=== PATIENT | female | born 1995 | race Caucasian/White ===

== ENCOUNTER 2021-12-18 19:28 | Emergency (ER) | payer OTHER ==
--- NOTE | 2021-12-18 19:56 | ERPHSYRPT ---
- History of Present Illness Time Seen by Provider: 12/18/21 19:56 Historian: patient, family Exam Limitations: no limitations Patient Subjective Stated Complaint: pt states "I have been throwing up since this morning." Triage Nursing Assessment: pt ambulated into the er; pt is axo x4; c/o vomiting; pt states 5/10 pain to RUQ; pt states 4 episodes of emesis today; pt denies diarrhea; pt states last bm today and was normal for her; abd obese, round, soft, tender to RUQ; hyperactive bowel sounds in all quads; pt denies difficulty with urination; vitals wnl Timing/Duration: today Activities at Onset: none Quality: cramping Abdominal Pain Onset Location: RUQ Pain Radiation: no radiation Severity of Pain-Max: moderate Severity of Pain-Current: mild Modifying Factors: Improves With: nothing Associated Symptoms: denies symptoms Previous symptoms: same symptoms as today Allergies/Adverse Reactions: shrimp Allergy (Severe, Verified 12/18/21 19:35) Difficulty Breathing bee pollen Adverse Reaction (Verified 12/18/21 19:35) Swelling Home Medications: ARIPiprazole [Abilify] 5 mg PO DAILY 08/09/19 [History] PARoxetine HCL [Paxil] 40 mg PO DAILY 08/09/19 [History] Hx Tetanus, Diphtheria Vaccination/Date Given: Yes Hx Influenza Vaccination/Date Given: No Hx Pneumococcal Vaccination/Date Given: No Travel Risk - International Travel Have you traveled outside of the country in past 3 weeks: No - Coronavirus Screening Are you exhibiting any of the following symptoms?: Yes Symptoms: Vomiting/Diarrhea Close contact with a COVID-19 positive Pt in past 14-21 Days: No - Vaccine Status Have you recieved a Covid-19 vaccination: No - Review of Systems Constitutional: No Symptoms Eyes: No Symptoms Ears, Nose, & Throat: No Symptoms Respiratory: No Symptoms Cardiac: No Symptoms Abdominal/Gastrointestinal: Nausea, Vomiting Genitourinary Symptoms: No Symptoms Musculoskeletal: No Symptoms Neurological: No Symptoms Psychological: No Symptoms Endocrine: No Symptoms Hematologic/Lymphatic: No Symptoms Immunological/Allergic: No Symptoms All Other Systems: Reviewed and Negative - Past Medical History Pertinent Past Medical History: Yes Neurological History: No Pertinent History ENT History: No Pertinent History Cardiac History: No Pertinent History Respiratory History: No Pertinent History Endocrine Medical History: No Pertinent History Musculoskeletal History: No Pertinent History GI Medical History: No Pertinent History History: No Pertinent History Psycho-Social History: Bipolar, Depression, Anxiety, Attention Deficit Disorder Female Reproductive Disorders: Menstrual Problems - Past Surgical History Past Surgical History: No Neuro Surgical History: No Pertinent History Cardiac: No Pertinent History Respiratory: No Pertinent History Gastrointestinal: No Pertinent History Genitourinary: No Pertinent History Musculoskeletal: No Pertinent History Female Surgical History: No Pertinent History - Social History Smoking Status: Former smoker How long have you smoked: 3 yrs Exposure to second hand smoke: Yes Drug Use: none Patient Lives Alone: No - Female History Hx Now: No - Nursing Vital Signs Nursing Vital Signs: Initial Vital Signs Temperature 98.9 F 12/18/21 19:36 Pulse Rate 81 12/18/21 19:36 Respiratory Rate 18 12/18/21 19:36 Blood Pressure 130/69 12/18/21 19:36 O2 Sat by Pulse Oximetry 97 12/18/21 19:36 Pain Scale Pain Intensity 0 - Physical Exam General Appearance: mild distress, obese Eye Exam: PERRL/EOMI Ears, Nose, Throat Exam: normal ENT inspection Neck Exam: normal inspection Respiratory Exam: normal breath sounds Cardiovascular Exam: regular rate/rhythm Gastrointestinal/Abdomen Exam: soft, normal bowel sounds, tenderness (mild RUQ) Pelvic Exam: not done Rectal Exam: deferred Back Exam: normal inspection Extremity Exam: normal inspection Neurologic Exam: alert, oriented x 3, cooperative Skin Exam: normal color SpO2 Interpretation: normal SpO2: 97 O2 Delivery: Room Air - Course Nursing assessment & vital signs reviewed: Yes - CT Exams Abdomen/Pelvis CT Interpretation: Tele-radiologist Report, Other (no acute change) Ordered Tests: Active Orders 24 hr Category Date Time Status ABDOMEN AND PELVIS W/0 CONTRAS [CT] Stat Exams 12/18/21 21:21 Taken AMYLASE Stat Lab 12/18/21 20:00 Completed CBC W DIFF Stat Lab 12/18/21 20:00 Completed CMP Stat Lab 12/18/21 20:00 Completed HCG QUALITATIVE,SERUM Stat Lab 12/18/21 20:00 Completed LIPASE Stat Lab 12/18/21 20:00 Completed UA W/RFX CULTURE Stat Lab 12/18/21 21:26 Completed Medication Summary Discontinued Medications Generic Name Dose Route Start Last Admin Trade Name Freq PRN Reason Stop Dose Admin Ondansetron HCl 4 mg 12/18/21 20:17 12/18/21 20:21 Ondansetron Hcl 4 Mg/2 Ml Vial IV 12/18/21 20:18 4 mg STAT ONE Administration Ondansetron HCl Confirm 12/18/21 20:20 Ondansetron Hcl 4 Mg/2 Ml Vial Administered 12/18/21 20:21 Dose 4 mg .ROUTE .[employer] ONE Prochlorperazine Edisylate 10 mg 12/18/21 22:35 12/18/21 22:50 Prochlorperazine Edisylate 10 Mg/2 Ml Vial IV 12/18/21 22:36 10 mg STAT ONE Administration Prochlorperazine Edisylate Confirm 12/18/21 22:49 Prochlorperazine Edisylate 10 Mg/2 Ml Vial Administered 12/18/21 22:50 Dose 10 mg .ROUTE .[employer] ONE Lab/Rad Data: Laboratory Result Diagrams 12/18/21 20:00 12/18/21 20:00 Laboratory Results 12/18/21 12/18/21 12/18/21 Range/Units 21:26 20:00 20:00 WBC (4.0-10.5) x10^3/uL RBC (4.1-5.4) x10^6/uL Hgb (12.0-16.0) g/dL Hct (35-47) % MCV (78-100) fL MCH (26-32) pg MCHC (32-36) g/dL RDW (11.5-14.0) % Plt Count (150-450) x10^3/uL MPV (7.5-11.0) fL Gran % (36.0-66.0) % Immature Gran % (Auto) (0.00-0.4) % Nucleat RBC Rel Count (0.00-0.1) % Eos # (Auto) (0-0.5) x10^3/uL Immature Gran # (Auto) (0.00-0.03) x10^3u/L Absolute Lymphs (auto) (1.0-4.6) x10^3/uL Absolute Monos (auto) (0.0-1.3) x10^3/uL Absolute Nucleated RBC (0.00-0.01) x10^3u/L Lymphocytes % (24.0-44.0) % Monocytes % (0.0-12.0) % Eosinophils % (0.00-5.0) % Basophils % (0.0-0.4) % Absolute Granulocytes (1.4-6.9) x10^3/uL Basophils # (0-0.4) x10^3/uL Sodium 139 (137-145) mmol/L Potassium 4.0 (3.5-5.1) mmol/L Chloride 105 (98-107) mmol/L Carbon Dioxide 25 (22-30) mmol/L Anion Gap 13.6 (5-15) MEQ/L BUN 7 (7-17) mg/dL Creatinine 0.54 (0.52-1.04) mg/dL Estimated GFR > 60.0 ML/MIN Glucose 106 (74-106) mg/dL Calcium 9.6 (8.4-10.2) mg/dL Total Bilirubin 1.10 (0.2-1.3) mg/dL AST 243 H (14-36) U/L ALT 125 H (0-35) U/L Alkaline Phosphatase 78 (38-126) U/L Serum Total Protein 6.7 (6.3-8.2) g/dL Albumin 3.8 (3.5-5.0) g/dL Amylase 46 (30-110) U/L Lipase 45 (23-300) U/L Serum , Qual NEGATIVE (Negative) Urinalys Dipstick Clnc MAIN LAB Urine Color YELLOW (YELLOW) Urine Appearance CLEAR (CLEAR) Urine pH 8.5 (5-6) Ur Specific [place] 1.020 (1.005-1.025) POC Urine Protein Conf TRACE (Negative) Urine Ketones NEGATIVE (NEGATIVE) Urine Nitrite NEGATIVE (NEGATIVE) Urine Bilirubin NEGATIVE (NEGATIVE) Urine Urobilinogen 1 (0-1) mg/dL Urine Leukocytes NEGATIVE (NEGATIVE) Urine WBC (Auto) 0-2 (0-5) /HPF Urine RBC (Auto) NONE (0-2) /HPF U Epithel Cells (Auto) RARE (FEW) /HPF Urine Bacteria (Auto) NONE (NEGATIVE) /HPF Urine RBC NEGATIVE (0-5) Dave/ul Urine Mucus (Auto) SLIGHT (NEGATIVE) /HPF Ur Culture Indicated? NO Urine Glucose NEGATIVE (NEGATIVE) mg/dL 12/18/21 Range/Units 20:00 WBC 7.8 (4.0-10.5) x10^3/uL RBC 4.50 (4.1-5.4) x10^6/uL Hgb 13.1 (12.0-16.0) g/dL Hct 40.2 (35-47) % MCV 89.3 (78-100) fL MCH 29.1 (26-32) pg MCHC 32.6 (32-36) g/dL RDW 12.5 (11.5-14.0) % Plt Count 322 (150-450) x10^3/uL MPV 10.5 (7.5-11.0) fL Gran % 67.0 H (36.0-66.0) % Immature Gran % (Auto) 0.4 (0.00-0.4) % Nucleat RBC Rel Count 0.0 (0.00-0.1) % Eos # (Auto) 0.15 (0-0.5) x10^3/uL Immature Gran # (Auto) 0.03 (0.00-0.03) x10^3u/L Absolute Lymphs (auto) 1.95 (1.0-4.6) x10^3/uL Absolute Monos (auto) 0.37 (0.0-1.3) x10^3/uL Absolute Nucleated RBC 0.00 (0.00-0.01) x10^3u/L Lymphocytes % 25.1 (24.0-44.0) % Monocytes % 4.8 (0.0-12.0) % Eosinophils % 1.9 (0.00-5.0) % Basophils % 0.8 (0.0-0.4) % Absolute Granulocytes 5.20 (1.4-6.9) x10^3/uL Basophils # 0.06 (0-0.4) x10^3/uL Sodium (137-145) mmol/L Potassium (3.5-5.1) mmol/L Chloride (98-107) mmol/L Carbon Dioxide (22-30) mmol/L Anion Gap (5-15) MEQ/L BUN (7-17) mg/dL Creatinine (0.52-1.04) mg/dL Estimated GFR ML/MIN Glucose (74-106) mg/dL Calcium (8.4-10.2) mg/dL Total Bilirubin (0.2-1.3) mg/dL AST (14-36) U/L ALT (0-35) U/L Alkaline Phosphatase (38-126) U/L Serum Total Protein (6.3-8.2) g/dL Albumin (3.5-5.0) g/dL Amylase (30-110) U/L Lipase (23-300) U/L Serum , Qual (Negative) Urinalys Dipstick Clnc Urine Color (YELLOW) Urine Appearance (CLEAR) Urine pH (5-6) Ur Specific [place] (1.005-1.025) POC Urine Protein Conf (Negative) Urine Ketones (NEGATIVE) Urine Nitrite (NEGATIVE) Urine Bilirubin (NEGATIVE) Urine Urobilinogen (0-1) mg/dL Urine Leukocytes (NEGATIVE) Urine WBC (Auto) (0-5) /HPF Urine RBC (Auto) (0-2) /HPF U Epithel Cells (Auto) (FEW) /HPF Urine Bacteria (Auto) (NEGATIVE) /HPF Urine RBC (0-5) Dave/ul Urine Mucus (Auto) (NEGATIVE) /HPF Ur Culture Indicated? Urine Glucose (NEGATIVE) mg/dL - Progress Progress: improved Progress Note: 12/19/21 06:24 sx c/w biliary colic, maybe some gerd, rx nausea med, otc gerd med, see pcp for more w.u Counseled pt/family regarding: lab results, diagnosis, need for follow-up, rad results - Departure Departure Disposition: Home Clinical Impression: Biliary colic Nausea & vomiting Qualifiers: Vomiting type: unspecified Qualified Code(s): R11.2 - Nausea with vomiting, unspecified Condition: Stable Critical Care Time: No Referrals: MAGGI HUTCHINSON MD [Primary Care Provider] - Follow up/PCP as directed Instructions: Gallstones, Nausea and Vomiting, Adult Additional Instructions: Avoid fatty, greasy, or spicy foods. See your PCP about further tests if indicated, such as a galbladder ultrasound and HIDA scan. Prescriptions: Dexlansoprazole [Dexilant] 30 mg PO DAILY #30 Ondansetron [Ondansetron Odt ] 4 mg PO Q6H PRN #30 tab.sl PRN Reason: Nausea
[2021-12-18] MEDS ORDERED: Zofran 4 MG/2 ML VIAL IV ONE (20:17)
[2021-12-18] MEDS ORDERED: Zofran 4 MG/2 ML VIAL ONE (20:20)
[2021-12-18 20:21] LABS: Basophil (Absolute #) 0.06 x10^3/uL (0-0.4); Eosinophil % 1.9 % (0.00-5.0); Eosinophil (Absolute #) 0.15 x10^3/uL (0-0.5); Hematocrit 40.2 % (35-47); Hemoglobin 13.1 g/dL (12.0-16.0); Lymphocyte (Absolute #) 1.95 x10^3/uL (1.0-4.6); Lymphocytes % 25.1 % (24.0-44.0); Mean Cell Volume 89.3 fL (78-100); Mean Corpuscular Hemoglobin 29.1 pg (26-32); Mean Corpuscular Hgb Concent. 32.6 g/dL (32-36); Mean Platelet Volume 10.5 fL (7.5-11.0); Monocyte (Absolute #) 0.37 x10^3/uL (0.0-1.3); Monocytes % 4.8 % (0.0-12.0); Platelet Count 322 x10^3/uL (150-450); Red Cell Distribution Width 12.5 % (11.5-14.0); White Blood Count 7.8 x10^3/uL (4.0-10.5)
[2021-12-18 20:26] LABS: ALBUMIN 3.8 g/dL (3.5-5.0); ALKALINE PHOSPHATASE 78 U/L (38-126); AMYLASE 46 U/L (30-110); ANION GAP 13.6 MEQ/L (5-15); BLOOD UREA NITROGEN 7 mg/dL (7-17); CHLORIDE 105 mmol/L (98-107); Calcium 9.6 mg/dL (8.4-10.2); Carbon Dioxide 25 mmol/L (22-30); Creatinine 1 0.54 mg/dL (0.52-1.04); EST GLOMERULAR FILTRATION RATE > 60.0 ML/MIN; Glucose 106 mg/dL (74-106); LIPASE 45 U/L (23-300); SGOT/AST 243 U/L (14-36); SGPT/ALT 125 U/L (0-35); SODIUM 139 mmol/L (137-145); Total Protein 6.7 g/dL (6.3-8.2)
[2021-12-18 21:58] LABS: Appearance CLEAR (CLEAR); Bilirubin NEGATIVE (NEGATIVE); Dipstick done @ ? MAIN LAB; Glucose NEGATIVE (NEGATIVE); Ketones NEGATIVE (NEGATIVE); Nitrite NEGATIVE (NEGATIVE); Ph 8.5 (5-6); Protein,Urine Dip TRACE (Negative); RBC NEGATIVE Ery/ul (0-5); Urobilinogen 1 mg/dL (0-1)
[2021-12-18 21:59] LABS: Epithelial Cells RARE /HPF (FEW); Mucus SLIGHT /HPF (NEGATIVE); WBC 0-2 /HPF (0-5)
[2021-12-18 22:00] LABS: Urine Cultured Indicated? NO
[2021-12-18] MEDS ORDERED: Compazine 10 MG/2 ML IV ONE (22:35)
[2021-12-18] MEDS ORDERED: Compazine 10 MG/2 ML ONE (22:49)
[2021-12-18 23:50] VITALS: BP 128/73; PULSE 85
[2021-12-19 06:26] VITALS: O2SAT 97
--- NOTE | 2021-12-19 07:31 | XRAY ---
Indication: Abdomen pain. Chronic "gallbladder issues." Multiple contiguous axial images obtained through the abdomen and pelvis without contrast. Comparison: February 28, 2019. Lung bases are clear. Heart borderline enlarged. Stomach is distended with food/fluid. Noncontrasted stomach and bowel loops appear nonobstructed. Normal appendix. Fatty hepatomegaly measuring 21 cm. No free fluid/air. Remaining liver, gallbladder, pancreas, spleen, adrenal glands, kidneys, ureters, bladder, uterus, and aorta are unremarkable for noncontrast exam. Osseous structures intact. No ventral or inguinal hernias. Impression: 1. Fatty hepatomegaly. 2. Remaining CT abdomen/pelvis without contrast exam is negative. 3. Gallbladder sonogram may yield further information if there remains clinical concern.
== END 2021-12-18 23:51 | disposition home or self-care (01) ==
LOC: ED 19:28
DX: K80.50 Calculus of bile duct without cholangitis or cholecystitis without obstruction (principal); R11.2 Nausea with vomiting, unspecified; Z79.899 Other long term (current) drug therapy
CPT/HCPCS: 36415; 74176; 80053; 81015; 81025; 82150; 83690; 85025; 96374; 99284; J2405

== ENCOUNTER 2022-01-25 09:28 | Day surgery (SDC) | payer OTHER ==
--- NOTE | 2022-01-25 09:08 | HP ---
DATE OF SURGERY: 01/25/2022 HISTORY OF PRESENT ILLNESS: The patient is a 26-year-old with some right upper quadrant pain, nausea and vomiting worse with eating fatty or greasy foods over the past year, worse recently. No abdominal surgeries. No blood thinners. PAST MEDICAL HISTORY: Anxiety and headaches in the past. PAST SURGICAL HISTORY: She denied any prior surgery on her abdomen. MEDICATIONS: Paxil, Abilify. Her medications as listed in her medical physician notes include aripiprazole, clomiphene citrate, metformin, aspirin, paroxetine, propranolol, sumatriptan, trazodone. ALLERGIES: NKDA. SHRIMP. BEE POLLEN. NICKEL. FAMILY HISTORY: Negative. SOCIAL HISTORY: No smoking or alcohol abuse. REVIEW OF SYSTEMS: Fourteen systems reviewed. No chest pain or palpitations. Other systems negative or noncontributory as above and per preadmission questionnaire. PHYSICAL EXAMINATION: GENERAL: No acute distress. HEENT: Sclerae nonicteric. NECK: No JVD. CHEST: Equal excursion. CVS: Regular rate and rhythm. ABDOMEN: Soft. No peritoneal signs. EXTREMITIES: No significant edema. NEURO: Alert, oriented, moving extremities symmetrically. PSYCH: Appropriate mood and affect. IMPRESSION: Acute exacerbation of chronic cholecystitis, symptomatic cholelithiasis. I feel the patient will benefit from cholecystectomy. Risks and benefits explained in detail including but not limited to bleeding or infection, risk of trocar injury or hernia, risk of bile leak, bowel duct injury, retained stone or sludge possibly requiring further procedure either open or ERCP, general risk of anesthesia, deep venous thrombosis, pulmonary embolism, pneumonia, perioperative risk of aches, pains, bloating, constipation and/or loose stools possibly even chronic in nature, possibility of no improvement in her symptoms and may require further work up and/or testing, other studies or procedures or referrals. She understands and agrees to the planned procedure, will proceed with laparoscopic cholecystectomy with possible open.
[~2022-01-25 09:28] MED LIST: Lactated Ringers 1,000 ML IV SCH; MEFOXIN 2 GM PREMIX** 2 GM/50 ML ML IV SCH
[2022-01-25] MEDS ORDERED: Lactated Ringers 1,000 ML IV ONE (10:01)
[2022-01-25] MEDS ORDERED: Sensorcaine 0.25% 10 ML ONE (10:04)
[2022-01-25] MEDS ORDERED: MEFOXIN 2 GM PREMIX** 2 GM/50 ML ML IV ONE (10:17)
[2022-01-25] MEDS ORDERED: Reglan 10 MG/2 ML IV ONE (10:42)
[2022-01-25] MEDS ORDERED: Transderm Scop 1.5MG Patch TOP PRN (10:42)
[2022-01-25] MEDS ORDERED: Versed 2 MG/2 ML Injection IV PRN (10:42)
[2022-01-25] MEDS ORDERED: Pepcid 20 MG VIAL IV ONE (10:42)
[2022-01-25] MEDS ORDERED: SUBLIMAZE 100 MCG/2 ML ONE ×2 (12:30→13:10)
[2022-01-25] MEDS ORDERED: Versed 2 MG/2 ML Injection ONE (12:30)
[2022-01-25] MEDS ORDERED: Zofran 4 MG/2 ML VIAL ONE ×2 (12:31→13:55)
[2022-01-25] MEDS ORDERED: Quelicin Fliptop 200 MG/10 ML ONE (12:31)
[2022-01-25] MEDS ORDERED: DIPRIVAN 200 MG/20 ML IV ONE ×2 (12:31→12:43)
[2022-01-25] MEDS ORDERED: Xylocaine-Mpf 2% 5 Ml Vial ONE (12:31)
[2022-01-25] MEDS ORDERED: Zemuron 100 MG/10 ML ONE ×2 (12:31→13:18)
[2022-01-25] MEDS ORDERED: Decadron 4 MG INJ ONE (12:31)
[2022-01-25] MEDS ORDERED: OFIRMEV 100 ML IV ONE (12:41)
[2022-01-25] MEDS ORDERED: Pre-Attached Lta Kit TP ONE (12:41)
[2022-01-25] MEDS ORDERED: BRIDION 200MG/2ML IV ONE (13:25)
[2022-01-25] MEDS ORDERED: Hydromorphone 1 mg/ml Injection ONE ×2 (13:56→14:15)
[2022-01-25 14:45] VITALS: O2SAT 94
[2022-01-25 15:23] VITALS: BP 150/98; PULSE 73
--- NOTE | 2022-01-26 07:44 | OP ---
SURGERY DATE/TIME: 01/25/2022 1238 PREOPERATIVE DIAGNOSIS: Acute exacerbation of chronic cholecystitis, symptomatic cholelithiasis. POSTOPERATIVE DIAGNOSIS: Acute exacerbation of chronic cholecystitis, symptomatic cholelithiasis. PROCEDURE: Laparoscopic cholecystectomy. SURGEON: Dr. Joon Lei. ANESTHESIA: General. ESTIMATED BLOOD LOSS: Minimal. INDICATIONS: As noted above. Risks and benefits explained in detail but not limited to and consent obtained. DESCRIPTION OF PROCEDURE AND FINDINGS: The patient was taken to the operating room. General anesthesia induced. Abdomen prepped and draped in usual sterile fashion. After official time out and no disagreement with planned procedure, a transverse incision made at the supraumbilical area. Fascia grasped and pulled upward. Veress needle inserted and tested with saline. Pneumoperitoneum accomplished insufflating opening pressure of 0-15. A 5 mm bladeless port and camera were inserted without difficulty followed by two - 5 mm right upper quadrant ports and 11 mm epigastric port. The gallbladder had some fibrofatty adhesions and inflammatory reaction, dissected posterior, lateral to anterior fashion. Slowly and carefully the cystic duct and cystic artery were isolated until critical view obtained both anteriorly and posteriorly. Once this is accomplished, the cystic duct and cystic artery clipped x3 and divided in the usual fashion. The gallbladder is slowly and carefully dissected free from its dense attachment to liver bed clipping additional oozing side branches off the cystic artery and cystic duct as necessary directly on the gallbladder wall. Just before releasing the grasper tore a small pinhole spilling small amount of bile. There were no visible stone spillage. The gallbladder was fairly reactive requiring a clipping a few additional oozing side branches off the cystic artery and cystic vein directly on the gallbladder wall. Just prior to releasing from final attachments to the anterior edge of the liver, the liver bed re-inspected. Clips noted to be in place in cystic duct and cystic artery stumps. No signs of any active bleeding or bile leakage from the liver bed itself. The gallbladder released from final attachments to anterior edge of the liver, placed in the sac. It had been decompressed partially of bile and placed in the provided sac, pulled up into the epigastric wound where it was opened outside the body cavity and Samir used to retrieve large stones, allowing the gallbladder and bag to finally be pulled free and passed off. The fascial defect closed with puncture closure device with #1 Vicryl. Copious amount of irrigation accomplished lateral to the liver and subhepatic space irrigating clear. Liver bed re-inspected. Clips noted in place cystic duct and cystic artery stumps. No signs of any active bleeding or bile leakage. It was felt there was no need for drain placement. Pneumoperitoneum decompressed. The wound is irrigated out. Skin incision closed with 4-0 Vicryl. Steri-Strips and sterile dressing applied. The patient tolerated the procedure well. There were no immediate complications. I went out to look for family to discuss the findings with post-procedure.
== END 2022-01-25 15:10 | disposition home or self-care (01) ==
LOC: SDC 09:28
PROVIDERS: ATTEND Surgery
DX: K80.00 Calculus of gallbladder with acute cholecystitis without obstruction (principal)
CPT/HCPCS: 81025; J0330; J0694; J1100; J1170; J2250; J2405; J2704; J3010; A9270-GY

== ENCOUNTER 2025-05-22 09:29 | Emergency (ER) | payer OTHER ==
[2025-05-22 09:53] VITALS: RESP 18; TEMP 98.6
--- NOTE | 2025-05-22 09:53 | ERPHSYRPT ---
- History of Present Illness Time Seen by Provider: 05/22/25 09:51 Historian: patient Exam Limitations: no limitations Physician History: Patient is a 1 para 0 at 11 weeks gestational age by LMP comes to the emergency room due to nausea vomiting diarrhea going on since this morning. Patient denies any vaginal bleeding says she has some mild cramping just want to get checked out. Patient has not taken anything for the nausea vomiting. Denies any fever no chest pain shortness of breath Timing/Duration: today Activities at Onset: none Severity of Pain-Max: none Severity of Pain-Current: none Modifying Factors: Improves With: nothing Associated Symptoms: diarrhea, nausea Previous symptoms: no prior history Allergies/Adverse Reactions: shrimp Allergy (Severe, Verified 01/25/22 10:01) Difficulty Breathing bee pollen Adverse Reaction (Verified 01/25/22 10:01) Swelling nickel Adverse Reaction (Verified 01/25/22 10:01) Rash Home Medications: ARIPiprazole [Abilify] 5 mg PO DAILY 08/09/19 [History] Hx Tetanus, Diphtheria Vaccination/Date Given: Yes Hx Influenza Vaccination/Date Given: No Hx Pneumococcal Vaccination/Date Given: No - Review of Systems Constitutional: No Symptoms Eyes: No Symptoms Ears, Nose, & Throat: No Symptoms Respiratory: No Cough, No Dyspnea Cardiac: No Chest Pain, No Edema, No Syncope Abdominal/Gastrointestinal: Nausea, Vomiting, Diarrhea, No Abdominal Pain Genitourinary Symptoms: No Dysuria Neurological: No Dizziness, No Focal Weakness, No Sensory Changes Psychological: No Symptoms - Past Medical History Pertinent Past Medical History: Yes Neurological History: Migraines ENT History: No Pertinent History Cardiac History: No Pertinent History Respiratory History: No Pertinent History Endocrine Medical History: No Pertinent History Musculoskeletal History: Other GI Medical History: No Pertinent History History: No Pertinent History Psycho-Social History: Bipolar, Depression, Anxiety, Attention Deficit Disorder Female Reproductive Disorders: Menstrual Problems Other Medical History: PMH: SCOLIOSIS, DEPRESSION (TAKES MEDICATION). PSH: GALLBLADDER REMOVAL - Past Surgical History Past Surgical History: No Neuro Surgical History: No Pertinent History Cardiac: No Pertinent History Respiratory: No Pertinent History Gastrointestinal: Cholecystectomy Genitourinary: No Pertinent History Musculoskeletal: No Pertinent History Female Surgical History: No Pertinent History - Female History Hx Last Menstrual Period: one month ago - Social History Drug Use: none - Nursing Vital Signs Nursing Vital Signs: Initial Vital Signs Temperature 98.6 F 10/22/25 09:30 Pulse Rate 78 05/22/25 09:30 Respiratory Rate 18 05/22/25 09:30 Blood Pressure 141/59 05/22/25 09:30 O2 Sat by Pulse Oximetry 98 05/22/25 09:30 Pain Scale Pain Intensity 3 - Physical Exam General Appearance: no apparent distress, alert Eye Exam: PERRL/EOMI, eyes nml inspection Ears, Nose, Throat Exam: normal ENT inspection, pharynx normal, moist mucous membranes Respiratory Exam: normal breath sounds, lungs clear, No respiratory distress Cardiovascular Exam: regular rate/rhythm, normal heart sounds Gastrointestinal/Abdomen Exam: soft, No tenderness, No mass Neurologic Exam: alert, oriented x 3, cooperative SpO2 Interpretation: normal O2 Delivery: Room Air Ordered Tests: Active Orders 24 hr Category Date Time Status BMP Stat Lab 05/22/25 09:55 Completed CBC W DIFF Stat Lab 05/22/25 09:55 Completed Medication Summary Generic Name Dose Route Start Last Admin Trade Name Freq PRN Reason Stop Dose Admin Sodium Chloride 1,000 mls @ 999 mls/hr 05/22/25 09:50 05/22/25 09:55 Sodium Chloride 0.9% 1000 Ml IV 05/22/25 10:50 999 mls/hr .[id number] STA Administration Discontinued Medications Generic Name Dose Route Start Last Admin Trade Name Freq PRN Reason Stop Dose Admin Sodium Chloride Confirm 05/22/25 09:54 Sodium Chloride 0.9% 1000 Ml Administered 05/22/25 09:55 Dose 1,000 mls @ ud .ROUTE .[employer]K-[employer] ONE Lab/Rad Data: Laboratory Result Diagrams 05/22/25 09:55 05/22/25 09:55 Laboratory Results 05/22/25 05/22/25 Range/Units 09:55 09:55 WBC 9.5 (3.98-10.04) x10^3/uL RBC 4.34 (3.93-5.22) x10^6/uL Hgb 13.2 (11.2-15.7) g/dL Hct 38.5 (34.1-44.9) % MCV 88.7 (79.4-94.8) fL MCH 30.4 (25.6-32.2) pg MCHC 34.3 (32.2-35.5) g/dL RDW 12.0 (11.7-14.4) % Plt Count 318 (182-369) x10^3/uL MPV 10.3 (9.4-12.3) fL Gran % 83.9 H (34.0-71.1) % Immature Gran % (Auto) 0.3 (0.001-0.429) % Nucleat RBC Rel Count 0.0 (0.00-0.2) % Eos # (Auto) 0.01 L (0.04-0.36) x10^3/uL Immature Gran # (Auto) 0.03 (0.001-0.031) x10^3u/L Absolute Lymphs (auto) 1.19 (1.18-3.74) x10^3/uL Absolute Monos (auto) 0.29 (0.24-0.86) x10^3/uL Absolute Nucleated RBC 0.00 (0.00-0.012) x10^3u/L Lymphocytes % 12.5 L (19.3-51.7) % Monocytes % 3.0 L (4.7-12.5) % Eosinophils % 0.1 L (0.7-5.8) % Basophils % 0.2 (0.1-1.2) % Absolute Granulocytes 7.97 H (1.56-6.13) x10^3/uL Basophils # 0.02 (0.01-0.08) x10^3/uL Sodium 134 L (135-145) mmol/L Potassium 3.8 (3.5-5.1) mmol/L Chloride 107 (98-107) mmol/L Carbon Dioxide 17 L (22-30) mmol/L Anion Gap 14.1 (5-15) MEQ/L BUN 8 (7-17) mg/dL Creatinine 0.37 L (0.52-1.04) mg/dL Estimated GFR 138.2 ML/MIN Glucose 113 H (74-106) mg/dL Calcium 9.0 (8.4-10.2) mg/dL - Progress Progress Note: 05/22/25 10:13 Patient came in with nausea vomiting diarrhea. Patient physical exam did not reveal any findings patient had no tenderness on the abdomen. Patient is not febrile patient had blood work done which is negative for leukocytosis or any other findings. At this time my differential is viral enteritis versus morning sickness, low on the differential is appendicitis or colitis secondary to bacteria based on the physical exam and the laboratory evidence I believe the patient suffering from a mild viral enteritis advised to follow-up with primary care will be sent home on Zofran. Medical Desision Making - Independent Historian Additional History obtained from: Spouse - Discussion of managment Reviewed:: Test results Agreed on:: Treatment plan - Diagnostic Testing Diagnostic test were ordered, analyzed, and reviewed by me: Yes - Departure Departure Disposition: Home Clinical Impression: Viral gastroenteritis Nausea & vomiting Qualifiers: Vomiting type: unspecified Qualified Code(s): R11.2 - Nausea with vomiting, unspecified Condition: Good Critical Care Time: No Referrals: MAGGI HUTCHINSON MD [Primary Care Provider, FAMILY PRACTICE] - Follow up/PCP as directed Instructions: Vomiting -- Adult Prescriptions: Ondansetron ODT 4 MG [Zofran Odt 4 mg] 4 mg PO Q6H PRN PRN #10 tablet PRN Reason: Nausea
[2025-05-22 09:59] LABS: BASOPHIL % 0.2 % (0.1-1.2); Basophil (Absolute #) 0.02 x10^3/uL (0.01-0.08); Eosinophil (Absolute #) 0.01 x10^3/uL (0.04-0.36); Hematocrit 38.5 % (34.1-44.9); Hemoglobin 13.2 g/dL (11.2-15.7); IMMATURE GRAN # 0.03 x10^3u/L (0.001-0.031); IMMATURE GRAN % 0.3 % (0.001-0.429); Lymphocyte (Absolute #) 1.19 x10^3/uL (1.18-3.74); Mean Corpuscular Hemoglobin 30.4 pg (25.6-32.2); Mean Corpuscular Hgb Concent. 34.3 g/dL (32.2-35.5); Monocyte (Absolute #) 0.29 x10^3/uL (0.24-0.86); NUCLEATED RBC # 0.00 x10^3u/L (0.00-0.012); NUCLEATED RBC % 0.0 % (0.00-0.2); Platelet Count 318 x10^3/uL (182-369); Red Blood Count 4.34 x10^6/uL (3.93-5.22); White Blood Count 9.5 x10^3/uL (3.98-10.04)
[2025-05-22 10:11] LABS: Calcium 9.0 mg/dL (8.4-10.2); Carbon Dioxide 17.0 mmol/L (22-30); Creatinine 1 0.37 mg/dL (0.52-1.04); EST GLOMERULAR FILTRATION RATE 138.2 ML/MIN; Glucose 113.0 mg/dL (74-106); Potassium 3.8 mmol/L (3.5-5.1)
[2025-05-22 11:00] VITALS: BP 124/66; PULSE 99; O2SAT 100
== END 2025-05-22 11:02 | disposition home or self-care (01) ==
LOC: ED 09:29
DX: O99.611 Diseases of the digestive system complicating pregnancy, first trimester (principal); A08.4 Viral intestinal infection, unspecified; O21.9 Vomiting of pregnancy, unspecified; Z3A.11 11 weeks gestation of pregnancy; Z79.899 Other long term (current) drug therapy

== ENCOUNTER 2025-07-03 04:51 | Emergency (ER) | payer OTHER ==
[2025-07-03 05:12] VITALS: TEMP 98.7
[2025-07-03] MEDS ORDERED: Zofran 4 MG/2 ML VIAL ONE (05:32)
[2025-07-03] MEDS: Zofran 4 MG/2 ML VIAL IV ONE (05:33)
--- NOTE | 2025-07-03 05:34 | ERPHSYRPT ---
- History of Present Illness Time Seen by Provider: 07/03/25 05:28 Source: patient Exam Limitations: no limitations Patient Subjective Stated Complaint: pt reports nausea and vomiting increased from her baseline morning sickness. 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 pt states she is 17 weeks with an EDC of 12/10/2025. pt states Dr. Seals is her TECHNICAL STENOGRAPHER and she last saw him 06/24/25 and had a good check up. pt denies any abdominal pain or cramping, vaginal bleeding or discharge. Triage Nursing Assessment: pt is aox3, pupils perrl, afebrile, resps easy and non labored, cap refill < 3 seconds, radial pulses strong and equal, abdomen is soft, non tender, bowel sounds present and normoactive, pt skin is flushed and moist. pt is intermittently retching upon exam, emesis appears to be bilious in nature. Physician History: Patient is a 30-year-old female G1, P0 history of migraine headache anxiety ADD bipolar currently 17 weeks presents to our ED for evaluation and treatment of nausea and vomiting. Patient states that she is normally prescribed Zofran but ran out. 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 Patient's CORPORATE ASSOCIATE physician is Dr. Seals. Patient states her is uncomplicated. EDC is 12/10/2025. No vaginal bleeding. No abdominal discomfort. No pelvic cramping. Patient otherwise feels well. She voices no other complaints or concerns at this time. Portions of this note were created with voice recognition technology. There may be grammatical, spelling, punctuation or sound alike errors Timing/Duration: yesterday Severity: moderate Modifying Factors: Improves With: medication Associated Symptoms: denies symptoms Allergies/Adverse Reactions: shrimp Allergy (Severe, Verified 07/03/25 05:12) Difficulty Breathing bee pollen Adverse Reaction (Verified 07/03/25 05:12) Swelling nickel Adverse Reaction (Verified 07/03/25 05:12) Rash Hx Tetanus, Diphtheria Vaccination/Date Given: Yes Hx Influenza Vaccination/Date Given: No Hx Pneumococcal Vaccination/Date Given: No Immunizations Up to Date: No Travel Risk - International Travel Have you traveled outside of the country in past 3 weeks: No - Emerging Infectious Disease Are you exhibiting symptoms associated with any current EIDs: No - Review of Systems All Other Systems: Reviewed and Negative - Past Medical History Pertinent Past Medical History: Yes Neurological History: Migraines ENT History: No Pertinent History Cardiac History: No Pertinent History Respiratory History: No Pertinent History Endocrine Medical History: No Pertinent History Musculoskeletal History: Other GI Medical History: No Pertinent History History: No Pertinent History Psycho-Social History: Bipolar, Depression, Anxiety, Attention Deficit Disorder Female Reproductive Disorders: Menstrual Problems Other Medical History: PMH: SCOLIOSIS, DEPRESSION (TAKES MEDICATION). PSH: GALLBLADDER REMOVAL - Past Surgical History Past Surgical History: Yes Neuro Surgical History: No Pertinent History Cardiac: No Pertinent History Respiratory: No Pertinent History Gastrointestinal: Cholecystectomy Genitourinary: No Pertinent History Musculoskeletal: No Pertinent History Female Surgical History: No Pertinent History - Female History Hx Last Menstrual Period: one month ago Hx Now: Yes Gestational Age: 15 - Social History Smoking Status: Former smoker Exposure to second hand smoke: No Drug Use: none - Social Determinants of Health Will the patient participate in the screening: Yes Do you worry about a steady place to live?: No Do you have any problems with any of the following?: No known problems In the past 12 months,have you had to go without utilities?: No Transportation Issues: No Has anyone in your support network made you feel unsafe?: No Have you or anyone in your house had to go w/o enough food: No - Nursing Vital Signs Nursing Vital Signs: Initial Vital Signs Temperature 98.7 F 07/03/25 04:58 Pulse Rate 76 07/03/25 04:58 Respiratory Rate 17 07/03/25 04:58 Blood Pressure 134/50 07/03/25 04:58 O2 Sat by Pulse Oximetry 99 07/03/25 04:58 Pain Scale Pain Intensity 0 - Physical Exam General Appearance: no apparent distress, alert, other ( heart tones 155) Eye Exam: PERRL/EOMI, eyes nml inspection Ears, Nose, Throat Exam: normal ENT inspection, moist mucous membranes Neck Exam: normal inspection, full range of motion Respiratory Exam: normal breath sounds, lungs clear, No respiratory distress Cardiovascular Exam: regular rate/rhythm, normal heart sounds, normal peripheral pulses Gastrointestinal/Abdomen Exam: soft, normal bowel sounds, No tenderness, No mass Back Exam: normal inspection, normal range of motion, No CVA tenderness, No vertebral tenderness Extremity Exam: normal inspection, normal range of motion, pelvis stable Neurologic Exam: alert, oriented x 3, cooperative, normal mood/affect, sensation nml, No motor deficits Skin Exam: normal color, warm, dry, No rash Lymphatic Exam: No adenopathy SpO2 Interpretation: normal SpO2: 99 O2 Delivery: Room Air - Course Nursing assessment & vital signs reviewed: Yes Ordered Tests: Active Orders 24 hr Category Date Time Status Heart Tones-ED STAT Care 07/03/25 05:46 Active IV Insertion STAT Care 07/03/25 05:27 Active CBC W DIFF Stat Lab 07/03/25 05:05 Completed CMP Stat Lab 07/03/25 05:05 Completed UA W/RFX UR CULTURE Stat Lab 07/03/25 05:27 Ordered Medication Summary Generic Name Dose Route Start Last Admin Trade Name Freq PRN Reason Stop Dose Admin Sodium Chloride 1,000 mls @ 250 mls/hr 07/03/25 05:30 07/03/25 05:33 Sodium Chloride 0.9% 1000 Ml IV 08/02/25 05:29 250 mls/hr .Q4H SAULO Administration Discontinued Medications Generic Name Dose Route Start Last Admin Trade Name Freq PRN Reason Stop Dose Admin Ondansetron HCl 4 mg 07/03/25 05:27 07/03/25 05:33 Ondansetron Hcl 4 Mg/2 Ml Vial IV 07/03/25 05:28 4 mg STAT ONE Administration Ondansetron HCl Confirm 07/03/25 05:32 Ondansetron Hcl 4 Mg/2 Ml Vial Administered 07/03/25 05:33 Dose 4 mg .ROUTE .K-MED ONE Lab/Rad Data: Laboratory Result Diagrams 07/03/25 05:05 07/03/25 05:05 Laboratory Results 07/03/25 07/03/25 Range/Units 05:05 05:05 WBC 8.9 (3.98-10.04) x10^3/uL RBC 4.21 (3.93-5.22) x10^6/uL Hgb 12.7 (11.2-15.7) g/dL Hct 37.8 (34.1-44.9) % MCV 89.8 (79.4-94.8) fL MCH 30.2 (25.6-32.2) pg MCHC 33.6 (32.2-35.5) g/dL RDW 12.1 (11.7-14.4) % Plt Count 299 (182-369) x10^3/uL MPV 10.9 (9.4-12.3) fL Gran % 81.2 H (34.0-71.1) % Immature Gran % (Auto) 0.7 H (0.001-0.429) % Nucleat RBC Rel Count 0.0 (0.00-0.2) % Eos # (Auto) 0.02 L (0.04-0.36) x10^3/uL Immature Gran # (Auto) 0.06 H (0.001-0.031) x10^3u/L Absolute Lymphs (auto) 1.35 (1.18-3.74) x10^3/uL Absolute Monos (auto) 0.22 L (0.24-0.86) x10^3/uL Absolute Nucleated RBC 0.00 (0.00-0.012) x10^3u/L Lymphocytes % 15.1 L (19.3-51.7) % Monocytes % 2.5 L (4.7-12.5) % Eosinophils % 0.2 L (0.7-5.8) % Basophils % 0.3 (0.1-1.2) % Absolute Granulocytes 7.26 H (1.56-6.13) x10^3/uL Basophils # 0.03 (0.01-0.08) x10^3/uL Sodium 136 (135-145) mmol/L Potassium 3.4 L (3.5-5.1) mmol/L Chloride 103 (98-107) mmol/L Carbon Dioxide 22 (22-30) mmol/L Anion Gap 14.1 (5-15) MEQ/L BUN 7 (7-17) mg/dL Creatinine 0.48 L (0.52-1.04) mg/dL Estimated GFR 129.0 ML/MIN Glucose 132 H (74-106) mg/dL Calcium 9.4 (8.4-10.2) mg/dL Total Bilirubin 0.80 (0.2-1.3) mg/dL AST 33 (14-36) U/L ALT 39 H (0-35) U/L Alkaline Phosphatase 56 (38-126) U/L Serum Total Protein 6.9 (6.3-8.2) g/dL Albumin 3.8 (3.5-5.0) g/dL - Progress Progress: improved Progress Note: Patient is a 30-year-old female G1, P0 history of migraine headache anxiety ADD bipolar currently 17 weeks presents to our ED for evaluation and treatment of nausea and vomiting. Patient states that she is normally prescribed Zofran but ran out. Physical exam unremarkable. Patient's heart tones are 155. Laboratory workup essentially nonremarkable. IV fluids infusing. Patient still unable to produce urine. It is currently the change of shift. Patient endorsed to incoming physician Dr. Dominguez who will review the urinalysis, complete p.o. challenge and dispo patient accordingly. He will contact Dr. Seals for an update. History obtained from patient and significant other at bedside. Differential diagnosis includes medication noncompliance, hyperemesis gravidarum, molar , gastroenteritis Complexity of problems addressed is moderate acute complicated. No critical care time. Complexity of data reviewed and analyzed is extensive. Test ordered test reviewed results analyzed and correlated clinically with history and physical exam. Management discussed with patient's CORPORATE ASSOCIATE physician Dr. Seals. Risk of complication and or risk of morbidity/mortality of patient management is moderate. A prescription for Zofran forwarded to patient's pharmacy. Vital stable. Time spent to discharge patient is approximately 20 minutes. Plan of care established for shared decision making. No social determinants of health present to impede follow-up. Portions of this note were created with voice recognition technology. There may be grammatical, spelling, punctuation or sound alike errors 07/03/25 05:34 07/03/25 06:[address] Ad (CORPORATE ASSOCIATE) Will see patient in: office Counseled pt/family regarding: lab results, diagnosis, need for follow-up - Departure Departure Disposition: Home Clinical Impression: Nonadherence to medication, Nausea and vomiting during Condition: Stable Critical Care Time: No Referrals: MAGGI HUTCHINSON MD [Primary Care Provider, [facility]] - Follow up/PCP as directed Additional Instructions: Discharge/Care Plan KALLIEASHLISISI ROJAS was seen on 07/03/25 in the Emergency Room. The patient was counseled regarding Diagnosis,Lab results, Imaging studies, need for follow up and when to return to the Emergency Room. Prescriptions given: Discharge Note I have spoken with the patient and/or caregivers. I have explained the patient's condition, diagnosis and treatment plan based on the information available to me at this time. I have answered the patient's and/or caregiver's questions and addressed any concerns. The patient and/or caregivers have as good understanding of the patient's diagnosis, condition and treatment plan as can be expected at this point. The vital signs have been stable. The patient's condition is stable and appropriate for discharge from the emergency department. The patient will pursue further outpatient evaluation with the primary care physician or other designated or consulting physician as outlined in the discharge instructions. The patient and/or caregivers are agreeable to this plan of care and follow-up instructions have been explained in detail. The patient and/or caregivers have received these instruction. The patient/and or caregivers are aware that any significant change in condition or worsening of symptoms should prompt an immediate return to this or the closest emergency department or call 911. Prescriptions: Ondansetron ODT 4 MG [Zofran Odt 4 mg] 4 mg PO Q6H PRN PRN #10 tablet PRN Reason: Vomiting
[2025-07-03 06:07] LABS: BASOPHIL % 0.3 % (0.1-1.2); Basophil (Absolute #) 0.03 x10^3/uL (0.01-0.08); Eosinophil (Absolute #) 0.02 x10^3/uL (0.04-0.36); Hematocrit 37.8 % (34.1-44.9); Hemoglobin 12.7 g/dL (11.2-15.7); IMMATURE GRAN # 0.06 x10^3u/L (0.001-0.031); IMMATURE GRAN % 0.7 % (0.001-0.429); Lymphocyte (Absolute #) 1.35 x10^3/uL (1.18-3.74); Mean Corpuscular Hemoglobin 30.2 pg (25.6-32.2); Mean Corpuscular Hgb Concent. 33.6 g/dL (32.2-35.5); Monocyte (Absolute #) 0.22 x10^3/uL (0.24-0.86); NUCLEATED RBC # 0.00 x10^3u/L (0.00-0.012); NUCLEATED RBC % 0.0 % (0.00-0.2); Platelet Count 299 x10^3/uL (182-369); Red Blood Count 4.21 x10^6/uL (3.93-5.22); White Blood Count 8.9 x10^3/uL (3.98-10.04)
[2025-07-03 06:26] LABS: Calcium 9.4 mg/dL (8.4-10.2); Carbon Dioxide 22.0 mmol/L (22-30); Creatinine 1 0.48 mg/dL (0.52-1.04); EST GLOMERULAR FILTRATION RATE 129.0 ML/MIN; Glucose 132.0 mg/dL (74-106); Potassium 3.4 mmol/L (3.5-5.1); SGOT/AST 33.0 U/L (14-36); SGPT/ALT 39.0 U/L (0-35); Total Protein 6.9 g/dL (6.3-8.2)
[2025-07-03 07:33] LABS: Glucose, Urine Negative (Negative); Protein,Urine Dip 30 (Negative); RBC 0-2 /HPF (0-5)
[2025-07-03 08:19] VITALS: RESP 18
[2025-07-03] MEDS ORDERED: Pepcid 20 MG ONE (08:39)
[2025-07-03] MEDS: Pepcid 20 MG PO ONE (08:40)
[2025-07-03 09:45] VITALS: BP 97/75; PULSE 66; O2SAT 100
== END 2025-07-03 09:54 | disposition home or self-care (01) ==
LOC: ED 04:51
DX: O21.9 Vomiting of pregnancy, unspecified (principal); Z3A.17 17 weeks gestation of pregnancy; T45.0X6A Underdosing of antiallergic and antiemetic drugs, initial encounter; Z91.148 Patient's other noncompliance with medication regimen for other reason